=== PATIENT | female | born 1990 | race African-American/Black ===

== ENCOUNTER 2018-11-24 16:38 | Inpatient (IN) | payer OTHER ==
[2018-11-24] MEDS ORDERED: ELECTROLYTE-148 SOLN 1,000 ML IV ONE (16:45)
[2018-11-24 17:27] VITALS: BMI 33.5
[2018-11-24] MEDS ORDERED: ELECTROLYTE-148 SOLN 1,000 ML IV SCH (17:45)
[2018-11-24 18:09] LABS: BASO % 0.3 % (0-2.0); EOS % 1.5 % (0-4.5); HEMATOCRIT 32.6 % (32.4-45.2); HEMOGLOBIN 11.2 GM/dL (10.7-15.3); LYMPH % 21.4 % (8-40); MCH 30.6 pg (25.7-33.7); MCHC 34.3 g/dl (32.0-36.0); MEAN CELL VOLUME 89.2 fl (80-96); MEAN PLT VOLUME 9.3 fl (7.5-11.1); MONO % 10.2 % (3.8-10.2); NEUT % 66.6 % (42.8-82.8); PLATELET COUNT 194 K/MM3 (134-434); RBC 3.66 M/mm3 (3.60-5.2); RDW 13.5 % (11.6-15.6); WHITE BLOOD COUNT 9.6 K/mm3 (4.0-10.0)
[2018-11-24 18:30] LABS: INR 0.94 (0.83-1.09); PROTHROMBIN TIME (PATIENT) 11.1 SEC (9.7-13.0)
[2018-11-24 18:33] LABS: ACTIVATED PTT 28.5 SECONDS (25.2-36.5)
[2018-11-24 18:37] LABS: ALBUMIN 2.8 g/dl (3.4-5.0); ALK PHOS 135 U/L (45-117); ANION GAP 9 MMOL/L (8-16); BILIRUBIN,TOTAL 0.2 mg/dL (0.2-1); BLOOD UREA NITROGEN 12 mg/dL (7-18); CALCIUM 8.5 mg/dL (8.5-10.1); CHLORIDE 107 mmol/L (98-107); CO2 24 mmol/L (21-32); CREATININE 0.5 mg/dL (0.55-1.3); GLUCOSE,RANDOM 73 mg/dL (74-106); POTASSIUM 3.8 mmol/L (3.5-5.1); SGOT/AST 14 U/L (15-37); SGPT/ALT 20 U/L (13-61); SODIUM 139 mmol/L (136-145); TOT PROT 6.4 g/dl (6.4-8.2)
--- NOTE | 2018-11-24 20:54 | HP ---
Past Medical History - Primary Care Physician PCP:: Bola Vnan - Admission Chief Complaint: 36 weeks, previous c/s , placenta previa, vaginal bleeding History of Present Illness: 27 yo f 36 weeks , with 2 previous c/s, known placenta previa , c/o vaginal bleeding one episode at home , had her panties soaked, no pain, ,fhr cat i, no contraction vagina exan , small blood clot removed from vagina , no active vaginal bleeding seen , cx closed , long History Source: Patient Limitations to Obtaining History: No Limitations - Past Medical History Gastrointestinal: Yes: Constipation Renal/: Yes: UTI (07/27/15 urine c/s pos for gbs) ...: 3 ...Para: 2 ...Term: 2 ...EDC by Chelsy: 12/23/18 Additional OB History: 2 previous c/s - Past Surgical History Past Surgical History: Yes: (02/2008) Hx Myomectomy: No Hx Transabdominal Cerclage: No - Smoking History Smoking history: Never smoked Have you smoked in the past 12 months: No Aproximately how many cigarettes per day: 2 - Alcohol/Substance Use Hx Alcohol Use: No History of Substance Use: reports: None - Social History Usual Living Arrangement: Yes: With Spouse History of Recent Travel: No Home Medications - Allergies Allergies/Adverse Reactions: Allergies Allergy/AdvReac Type Severity Reaction Status Date / Time No Known Drug Allergies Allergy Verified 11/24/18 17:40 - Home Medications Home Medications: Ambulatory Orders No122/Iron/Folic Acid [ Multi Tablet] 1 each PO DAILY MDD 1 11/12 Vitamins (Sjr) - 1 tab PO DAILY 01/31/16 Acetaminophen [Tylenol .Regular Strength -] 650 mg PO Q4H PRN #0 tablet Ibuprofen [Motrin -] 600 mg PO Q4H PRN #60 tablet 02/01/16 Tablet 1 tab PO DAILY 11/24/18 Review of Systems - Review of Systems Constitutional: reports: No Symptoms Eyes: reports: No Symptoms HENT: reports: No Symptoms Neck: reports: No Symptoms Cardiovascular: reports: No Symptoms Respiratory: reports: No Symptoms Gastrointestinal: reports: No Symptoms Genitourinary: reports: No Symptoms Breasts: reports: No Symptoms Reported Musculoskeletal: reports: No Symptoms Integumentary: reports: No Symptoms Neurological: reports: No Symptoms Endocrine: reports: No Symptoms Hematology/Lymphatic: reports: No Symptoms Psychiatric: reports: No Symptoms Physical Exam - Maternity Vital Signs: Vital Signs Temperature 98.2 F 11/24/18 18:39 Pulse Rate 155 H 11/24/18 18:39 Respiratory Rate 18 11/24/18 18:39 Blood Pressure 112/66 11/24/18 18:39 O2 Sat by Pulse Oximetry (%) Constitutional: Yes: Well Nourished, No Distress, Calm Eyes: Yes: WNL, Conjunctiva Clear, EOM Intact HENT: Yes: WNL, Atraumatic, Normocephalic Neck: Yes: WNL, Supple, Trachea Midline Cardiovascular: Yes: WNL, Regular Rate and Rhythm Breast(s): Yes: WNL - Abdominal Exam/OB Fundal Height: 36 Number of Fetuses: Single Presentation: Vertex Contractions: No Intensity: Unaware Monitor Mode: External Heart Rate Location: [facility] Category: I Accelerations: Uniform Decelerations: None - Vaginal Exam/OB Vaginal Bleediing: Yes, Old Blood Speculum Exam: No Dilatation (cm): closed Effacement (%): 0 Amniotic Membrane Status: Intact Presentation: Vertex/Position Station: -4 - Physical Exam Musculoskeletal: Yes: WNL Extremities: Yes: WNL Edema: LLE: Trace, RLE: Trace Deep Tendon Reflex Grade: Normal +2 ...Motor Strength: WNL Psychiatric: Yes: WNL - Labs Lab Results: CBC, BMP 11/24/18 17:30 11/24/18 17:30 Hemorrhage Risk Assessment - Risk Factors High Risk Factors: Yes: Placenta previa, low lying Risk Score: 2 Risk Level: High Risk Problem List - Problems (1) with 36 completed weeks gestation Code(s): Z3A.36 - 36 WEEKS GESTATION OF (2) Placenta previa antepartum in third trimester Code(s): O44.03 - COMPLETE PLACENTA PREVIA NOS OR WITHOUT HEMOR, THIRD TRI (3) Vaginal bleeding Code(s): N93.9 - ABNORMAL UTERINE AND VAGINAL BLEEDING, UNSPECIFIED Assessment/Plan admit for observation, monitor fh vaginal bleeeding has stoped, if continue to bleed will do c/s, otherwise observation celestone 2 doses c/s 24 hr ater second dose completion FHM
[2018-11-24] MEDS ORDERED: BETAMET ACET/BETAMET NA PH 30 MG/5 ML VIAL IM ONE (21:12)
[2018-11-24] MEDS ORDERED: BETAMET ACET/BETAMET NA PH 30 MG/5 ML VIAL ONE (21:21)
[2018-11-24] MEDS ORDERED: DEXTROSE 5%-LACTATED RINGERS 1,000 ML IV SCH (21:30)
--- NOTE | 2018-11-25 07:01 | PN ---
Progress Note (short form) - Note Progress Note: 36 weeks complete placenta previa vaginal bleeding no vaginal bleeding or spotting since last night, no pain Last Vital Signs Temp Pulse Resp BP Pulse Ox 98.1 F 83 18 101/61 11/25/18 06:00 11/25/18 06:00 11/25/18 06:00 11/25/18 06:00 abdomen soft, uterus non tender, 36 weeks size fhr cat 1, no contraction impression stable no vaginal bleeding plan will give second dose of beclomethasone tonight,for c/s after Problem List - Problems (1) with 36 completed weeks gestation Code(s): Z3A.36 - 36 WEEKS GESTATION OF (2) Placenta previa antepartum in third trimester Code(s): O44.03 - COMPLETE PLACENTA PREVIA NOS OR WITHOUT HEMOR, THIRD TRI (3) Vaginal bleeding Code(s): N93.9 - ABNORMAL UTERINE AND VAGINAL BLEEDING, UNSPECIFIED
[2018-11-25 07:37] LABS: BASO % 0.6 % (0-2.0); HEMATOCRIT 31.7 % (32.4-45.2); HEMOGLOBIN 10.8 GM/dL (10.7-15.3); MCH 30.5 pg (25.7-33.7); MCHC 34.1 g/dl (32.0-36.0); MEAN CELL VOLUME 89.4 fl (80-96); MEAN PLT VOLUME 9.3 fl (7.5-11.1); MONO % 2.1 % (3.8-10.2); NEUT % 86.3 % (42.8-82.8); PLATELET COUNT 185 K/MM3 (134-434); RBC 3.54 M/mm3 (3.60-5.2); RDW 13.8 % (11.6-15.6)
[2018-11-25 09:48] LABS: RPR NONREACTIVE (NONREACTIVE)
[2018-11-25] MEDS: ELECTROLYTE-148 SOLN 1,000 ML IV SCH ×2 (10:30→13:47)
[2018-11-25] MEDS ORDERED: CITRIC ACID/SODIUM CITRATE 30 ML UNIT-DOSE CUP PO ONE (11:00)
[2018-11-25] MEDS ORDERED: OXYTOCIN 20 UNITS in 0.9% NS 40 UNIT/2,000 ML INFUS.BAG IV ONE (11:09)
[2018-11-25] MEDS ORDERED: morphine SULFATE/Preservative Free 0.5 MG/ML (1cc Syringe) ONE (13:22)
[2018-11-25] MEDS ORDERED: ePHEDrine SULFATE 50 MG/1 ML AMPULE ONE (13:23)
[2018-11-25] MEDS ORDERED: oxyCODONE HCL 5 MG TABLET PO PRN (14:54)
[2018-11-25] MEDS ORDERED: IBUPROFEN 800 MG/8 ML IJ IVPB PRN (14:54)
[2018-11-25] MEDS ORDERED: METHYLERGONOVINE MALEATE 0.2 MG/1 ML AMP IM PRN (14:54)
[2018-11-25] MEDS ORDERED: OXYTOCIN 20 UNITS in 0.9% NS 20 UNIT/1,000 ML INFUS.BAG IV SCH (15:00)
--- NOTE | 2018-11-25 15:02 | OP ---
Operative Note - Note: Operative Date: 11/25/18 Pre-Operative Diagnosis: Previous / Complete Placeta previa Operation: Repeat Low Transverse Findings: Baby girl in cephalic presentation / Complete Placenta Previa Post-Operative Diagnosis: Same as Pre-op Surgeon: Mali Cross Commodities Requirements Analyst: Pete Kevin Anesthesia: Spinal Specimens Removed: Placenta Estimated Blood Loss (mls): 700 Operative Report Dictated: Yes
[2018-11-25 16:18] LABS: ARTERIAL BLD GAS O2 SATURATION 35.4 % (95-98); ARTERIAL BLOOD GAS BASE EXCESS -2.3 meq/l (-2-2); ARTERIAL BLOOD GAS PCO2 54.2 mmHg (35-45); ARTERIAL BLOOD GAS pH 7.28 (7.35-7.45)
[2018-11-25 16:21] LABS: VENOUS PC02 40.3 mmHg (41-51); VENOUS PH 7.38 (7.31-7.41); VENOUS PO2 33.8 mmHg (30-40)
[2018-11-25 16:37] LABS: ARTERIAL BLOOD GAS PO2 20.4 mmHg (80-105)
[2018-11-25 20:11] LABS: BASO % 0.2 % (0-2.0); HEMATOCRIT 25.1 % (32.4-45.2); HEMOGLOBIN 8.3 GM/dL (10.7-15.3); LYMPH % 14.1 % (8-40); MCH 29.8 pg (25.7-33.7); MCHC 32.9 g/dl (32.0-36.0); MEAN CELL VOLUME 90.7 fl (80-96); MEAN PLT VOLUME 9.5 fl (7.5-11.1); MONO % 10.9 % (3.8-10.2); NEUT % 74.8 % (42.8-82.8); RBC 2.77 M/mm3 (3.60-5.2); RDW 13.9 % (11.6-15.6); WHITE BLOOD COUNT 20.2 K/mm3 (4.0-10.0)
--- NOTE | 2018-11-25 20:22 | PN ---
Progress Note (short form) - Note Progress Note: Called by nurse to evaluate Patient with hemorrhage after . Patient had a repeat at 36 weeks due to complete Placenta Previa. I came to evaluated patient, she's lying comfortably in bed; not in distress. Pitocin in ongoing. PE : Uterus firm, dressing dry and intact. Pelvis : + significant amount of clots at the cervical os. Clots removed with hand. A/P : Hemorrhage after Stable Continue observation
[2018-11-25] MEDS ORDERED: CEFAZOLIN 2 GM/D5W 2 GM/50 ML ML IVPB ONE (20:45)
[2018-11-25 21:33] LABS: PLATELET COUNT 214 K/MM3 (134-434)
[2018-11-25 21:34] LABS: ANISOCYTOSIS 2+; MACROCYTOSIS 1+; PLATELET ESTIMATE ADEQUATE
[2018-11-26 07:27] LABS: BASO % 0.4 % (0-2.0); EOS % 0.3 % (0-4.5); HEMATOCRIT 18.3 % (32.4-45.2); LYMPH % 14.9 % (8-40); MCHC 33.3 g/dl (32.0-36.0); MEAN CELL VOLUME 90.2 fl (80-96); MEAN PLT VOLUME 9.2 fl (7.5-11.1); MONO % 11.7 % (3.8-10.2); NEUT % 72.7 % (42.8-82.8); PLATELET COUNT 153 K/MM3 (134-434); RBC 2.03 M/mm3 (3.60-5.2); RDW 13.8 % (11.6-15.6); WHITE BLOOD COUNT 13.3 K/mm3 (4.0-10.0)
[2018-11-26 08:24] LABS: HEMOGLOBIN 6.1 GM/dL (10.7-15.3)
[2018-11-26] MEDS ORDERED: diphenhydrAMINE HCL 25 MG CAPSULE (FP) PO PRN (10:48)
[2018-11-26] MEDS: ACETAMINOPHEN 325 MG TABLET (FP) PO PRN ×3 (11:05→22:03)
--- NOTE | 2018-11-26 14:51 | PN ---
Post Progress Note - Subjective Subjective: 27 yo Para 3 status post repeat at 36 weeks for Placenta previa, seen and evaluated. She's receiving blood transfusion due to severe anemia. She's lying in bed and denies any dizziness. Post Day: 1 Type of Delivery: Repeat C/S Vital Signs: Vital Signs Temperature 98.6 F 11/26/18 11:10 Pulse Rate 89 11/26/18 11:10 Respiratory Rate 20 11/26/18 12:00 Blood Pressure 89/50 L 11/26/18 11:10 O2 Sat by Pulse Oximetry (%) 100 11/25/18 16:30 Uterus: Yes: Fundus Firm Incision: Yes: Dressing dry and intact Abdomen/GI: Yes: Abdomen soft, Tolerating PO Lochia: Yes: Rubra Lochia, amount: Heavy Extremities: Yes: Calves non-tender Perineum: Yes: Intact - Labs Labs: CBC WBC 13.3 K/mm3 (4.0-10.0) H 11/26/18 06:00 RBC 2.03 M/mm3 (3.60-5.2) L 11/26/18 06:00 Hgb 6.1 GM/dL (10.7-15.3) L* 11/26/18 06:00 Hct 18.3 % (32.4-45.2) L D 11/26/18 06:00 MCV 90.2 fl (80-96) 11/26/18 06:00 MCH 30.0 pg (25.7-33.7) 11/26/18 06:00 MCHC 33.3 g/dl (32.0-36.0) 11/26/18 06:00 RDW 13.8 % (11.6-15.6) 11/26/18 06:00 Plt Count 153 K/MM3 (134-434) D 11/26/18 06:00 MPV 9.2 fl (7.5-11.1) 11/26/18 06:00 Absolute Neuts (auto) 9.7 K/mm3 (1.5-8.0) H 11/26/18 06:00 Neutrophils % 72.7 % (42.8-82.8) 11/26/18 06:00 Neutrophils % (Manual) 68.0 % (42.8-82.8) 11/25/18 19:00 Band Neutrophils % 4.0 % 11/25/18 19:00 Lymphocytes % 14.9 % (8-40) 11/26/18 06:00 Lymphocytes % (Manual) 16.0 % (8-40) 11/25/18 19:00 Monocytes % 11.7 % (3.8-10.2) H 11/26/18 06:00 Monocytes % (Manual) 12 % (3.8-10.2) H 11/25/18 19:00 Eosinophils % 0.3 % (0-4.5) D 11/26/18 06:00 Basophils % 0.4 % (0-2.0) 11/26/18 06:00 Nucleated RBC % 0 % (0-0) 11/26/18 06:00 Hypochromia 1+ 11/25/18 19:00 Platelet Estimate Adequate 11/25/18 19:00 Anisocytosis 2+ 11/25/18 19:00 Microcytosis 1+ 11/25/18 19:00 Macrocytosis 1+ 11/25/18 19:00 Problem List - Problems (1) Status post repeat low transverse section Code(s): Z98.891 - HISTORY OF UTERINE SCAR FROM PREVIOUS SURGERY Assessment/Plan Status post repeat Severe anemia Continue blood transfusion Repeat CBC after transfusion
[2018-11-26] MEDS ORDERED: BISACODYL 10 MG SUPP.RECT RC PRN (14:54)
[2018-11-26] MEDS: SIMETHICONE 80 MG TAB.CHEW (FP) PO PRN (16:47)
[2018-11-26] MEDS: IBUPROFEN 600 MG TABLET (FP) PO PRN ×2 (16:48→22:02)
--- NOTE | 2018-11-26 19:13 | OP ---
DATE OF OPERATION: 11/25/2018 PREOPERATIVE DIAGNOSIS: 36 weeks' gestation with complete placenta previa. POSTOPERATIVE DIAGNOSIS: 36 weeks' gestation with complete placenta previa. PROCEDURE: Repeat low transverse section. SURGEON: Mali Cross M.D. CO FOUNDER AND CHAIRMAN: Kushal Pedro ANESTHESIA: Spinal. COMPLICATIONS: None. ESTIMATED BLOOD LOSS: 700 mL. PROCEDURE: The patient was taken to the operating room where spinal anesthesia was administered. The patient was then prepped and draped in proper sterile fashion. A Pfannenstiel skin incision was made and carried down to the underlying layer of fascia. The fascia was incised in the midline and extended laterally. The superior aspect of the fascial incision was then grasped with Jv clamp, elevated, and the rectus muscle dissected off bluntly. Attention was then turned to the inferior aspect of the fascial incision, which in a similar fashion was then grasped with Jv clamp, elevated, and the rectus muscle dissected off bluntly. The rectus muscle was then in the midline. The peritoneum identified and entered sharply with the Metzenbaum scissors. The peritoneal incision was extended superiorly and inferiorly with good visualization of the bladder. Then the vesicouterine peritoneum was then grasped with a pickup and entered sharply with the Metzenbaum scissors. This incision was extended laterally, and a bladder flap created digitally. The lower uterine segment was incised using a 10 blade. This incision was extended laterally and the head delivered. Nose and mouth were suctioned, and the cord clamped and cut. The was handed to the waiting shank paperer. The placenta was found to be posteriorly, covering the cervical os. It was removed manually. Then the uterus was exteriorized and cleared of all clots and debris. The uterine incision was repaired using 0 Biosyn in a running locked fashion. A second layer of the same suture was used as a means to provide excellent hemostasis. The pelvis was completely irrigated, the uterus was returned to the abdomen. The peritoneum was closed using 2-0 Biosyn. The fascia was reapproximated using 0 Vicryl. The skin was closed with tia. Patient tolerated procedure well. Patient was then taken to PACU in stable condition. Pathology: Placenta. MALI CROSS M.D. [id number] MTDD
[2018-11-26 19:23] LABS: BASO % 0.4 % (0-2.0); EOS % 1.2 % (0-4.5); HEMATOCRIT 24.1 % (32.4-45.2); LYMPH % 17.3 % (8-40); MCHC 33.1 g/dl (32.0-36.0); MEAN CELL VOLUME 87.6 fl (80-96); MEAN PLT VOLUME 9.4 fl (7.5-11.1); MONO % 12.6 % (3.8-10.2); NEUT % 68.5 % (42.8-82.8); PLATELET COUNT 160 K/MM3 (134-434); RBC 2.75 M/mm3 (3.60-5.2); RDW 15.7 % (11.6-15.6); WHITE BLOOD COUNT 15.7 K/mm3 (4.0-10.0)
[2018-11-27 08:09] LABS: BASO % 0.3 % (0-2.0); EOS % 1.9 % (0-4.5); HEMATOCRIT 21.7 % (32.4-45.2); HEMOGLOBIN 7.5 GM/dL (10.7-15.3); LYMPH % 20.2 % (8-40); MCH 29.2 pg (25.7-33.7); MCHC 34.4 g/dl (32.0-36.0); MEAN CELL VOLUME 85.1 fl (80-96); MEAN PLT VOLUME 8.9 fl (7.5-11.1); MONO % 11.2 % (3.8-10.2); NEUT % 66.4 % (42.8-82.8); PLATELET COUNT 158 K/MM3 (134-434); RBC 2.55 M/mm3 (3.60-5.2); RDW 15.7 % (11.6-15.6); WHITE BLOOD COUNT 13.6 K/mm3 (4.0-10.0)
--- NOTE | 2018-11-27 08:33 | PN ---
Progress Note (short form) - Note Progress Note: pod 2 . s/p repeat c/s, total previa, post op vaginal bleed , recived 2 units PRBC has no excess vaginal bleeding, no dizziness CBC, BMP 11/24/18 17:30 Last Vital Signs Temp Pulse Resp BP Pulse Ox 98.1 F 84 18 106/68 100 11/27/18 06:00 11/27/18 06:00 11/27/18 06:00 11/27/18 06:00 11/25/18 16:30 abdomen soft, no distension, no cva , uterus firm no distension, BS are present incision dry, clean no calf tenderness plan ambulate cbc in am pain management Problem List - Problems (1) with 36 completed weeks gestation Code(s): Z3A.36 - 36 WEEKS GESTATION OF (2) Placenta previa antepartum in third trimester Code(s): O44.03 - COMPLETE PLACENTA PREVIA NOS OR WITHOUT HEMOR, THIRD TRI (3) Vaginal bleeding Code(s): N93.9 - ABNORMAL UTERINE AND VAGINAL BLEEDING, UNSPECIFIED
[2018-11-27] MEDS: PRENATAL VITAMINS W/ FOLIC ACID TABLET (FP) PO SCH (10:53)
[2018-11-27] MEDS: ACETAMINOPHEN 325 MG TABLET (FP) PO PRN ×2 (14:30→22:00)
[2018-11-27] MEDS: SIMETHICONE 80 MG TAB.CHEW (FP) PO PRN ×2 (14:30→22:00)
[2018-11-27] MEDS: IBUPROFEN 600 MG TABLET (FP) PO PRN ×2 (14:31→22:00)
[2018-11-27] MEDS: FERROUS SO4 325 MG TABLET (FP) PO SCH (17:17)
[2018-11-28] MEDS: FERROUS SO4 325 MG TABLET (FP) PO SCH ×2 (07:34→17:55)
[2018-11-28 08:39] LABS: BASO % 0.8 % (0-2.0); EOS % 4.6 % (0-4.5); HEMOGLOBIN 7.7 GM/dL (10.7-15.3); MCH 28.8 pg (25.7-33.7); MCHC 33.4 g/dl (32.0-36.0); MEAN CELL VOLUME 86.5 fl (80-96); NEUT % 58.6 % (42.8-82.8); PLATELET COUNT 186 K/MM3 (134-434); RBC 2.66 M/mm3 (3.60-5.2); WHITE BLOOD COUNT 11.3 K/mm3 (4.0-10.0)
[2018-11-28] MEDS: PRENATAL VITAMINS W/ FOLIC ACID TABLET (FP) PO SCH (09:52)
[2018-11-28] MEDS: IBUPROFEN 600 MG TABLET (FP) PO PRN ×2 (10:05→20:08)
[2018-11-28] MEDS: ACETAMINOPHEN 325 MG TABLET (FP) PO PRN ×2 (10:06→20:07)
[2018-11-28 12:28] LABS: RUBELLA IgG ANTIBODY 3.42
[2018-11-28 16:29] LABS: HBsAG SCREEN Negative
--- NOTE | 2018-11-28 20:16 | PN ---
Post Progress Note - Subjective Subjective: 27 yo Para 3 status post repeat , seen and evaluated. She's out of bed to chair. Doing well. Post Day: 3 Type of Delivery: Repeat C/S Vital Signs: Vital Signs Temperature 98 F 11/28/18 08:55 Pulse Rate 91 H 11/28/18 08:55 Respiratory Rate 18 11/28/18 08:55 Blood Pressure 119/78 11/28/18 08:55 O2 Sat by Pulse Oximetry (%) 100 11/25/18 16:30 Breast Exam: Yes: Soft Uterus: Yes: Fundus Firm Incision: Yes: Miki intact Abdomen/GI: Yes: Abdomen soft, Tolerating PO Lochia: Yes: Rubra Lochia, amount: Small Extremities: Yes: Calves non-tender Activity: Ambulating - Labs Labs: CBC WBC 11.3 K/mm3 (4.0-10.0) H 11/28/18 07:30 RBC 2.66 M/mm3 (3.60-5.2) L 11/28/18 07:30 Hgb 7.7 GM/dL (10.7-15.3) L 11/28/18 07:30 Hct 23.0 % (32.4-45.2) L 11/28/18 07:30 MCV 86.5 fl (80-96) 11/28/18 07:30 MCH 28.8 pg (25.7-33.7) 11/28/18 07:30 MCHC 33.4 g/dl (32.0-36.0) 11/28/18 07:30 RDW 16.0 % (11.6-15.6) H 11/28/18 07:30 Plt Count 186 K/MM3 (134-434) 11/28/18 07:30 MPV 9.0 fl (7.5-11.1) 11/28/18 07:30 Absolute Neuts (auto) 6.6 K/mm3 (1.5-8.0) 11/28/18 07:30 Neutrophils % 58.6 % (42.8-82.8) 11/28/18 07:30 Neutrophils % (Manual) 68.0 % (42.8-82.8) 11/25/18 19:00 Band Neutrophils % 4.0 % 11/25/18 19:00 Lymphocytes % 27.0 % (8-40) D 11/28/18 07:30 Lymphocytes % (Manual) 16.0 % (8-40) 11/25/18 19:00 Monocytes % 9.0 % (3.8-10.2) 11/28/18 07:30 Monocytes % (Manual) 12 % (3.8-10.2) H 11/25/18 19:00 Eosinophils % 4.6 % (0-4.5) H D 11/28/18 07:30 Basophils % 0.8 % (0-2.0) 11/28/18 07:30 Nucleated RBC % 0 % (0-0) 11/28/18 07:30 Hypochromia 1+ 11/25/18 19:00 Platelet Estimate Adequate 11/25/18 19:00 Anisocytosis 2+ 11/25/18 19:00 Microcytosis 1+ 11/25/18 19:00 Macrocytosis 1+ 11/25/18 19:00 Problem List - Problems (1) Status post repeat low transverse section Code(s): Z98.891 - HISTORY OF UTERINE SCAR FROM PREVIOUS SURGERY Assessment/Plan Status post repeat Stable Continue routine care
--- NOTE | 2018-11-29 07:06 | DS ---
Physical Exam-CARTON COUNTER FEEDER Vital Signs: Vital Signs Temperature 98.0 F 11/28/18 23:48 Pulse Rate 88 11/28/18 23:48 Respiratory Rate 20 11/28/18 23:48 Blood Pressure 117/66 11/28/18 23:48 O2 Sat by Pulse Oximetry (%) 100 11/25/18 16:30 Constitutional: Yes: Well Nourished, No Distress, Calm Eyes: Yes: WNL, Conjunctiva Clear, EOM Intact HENT: Yes: WNL, Atraumatic, Normocephalic Neck: Yes: WNL, Supple, Trachea Midline Cardiovascular: Yes: WNL, Regular Rate and Rhythm Respiratory: Yes: WNL, Regular, CTA Bilaterally Gastrointestinal: Yes: WNL ...Rectal Exam: Yes: WNL Renal/: Yes: WNL ....Post : Yes: Uterus firm, Uterus non-tender, Slight lochia rubra Breast(s): Yes: WNL Musculoskeletal: Yes: WNL Extremities: Yes: WNL Edema: No Integumentary: Yes: WNL Wound/Incision: Yes: Clean/Dry, Well Approximated, [place] Intact Neurological: Yes: WNL, Alert, Oriented ...Motor Strength: WNL Psychiatric: Yes: WNL, Alert, Oriented Labs: CBC, BMP 11/28/18 07:30 11/24/18 17:30 Delivery - Delivery Section: Repeat, Low Flap Transverse Type of Anesthesia: Spinal Episiotomy/Laceration: None EBL (cc): 700 Delivery, Single - Stages of Labor Date of Delivery: 11/25/18 Time of Delivery: 14:27 Time Placenta Delivered: 14:28 Placenta: Yes: Expressed - Condition of Infant Filler Shredder Machine/Optometrist President/Practice Owner Present: Yes Name: Mkiey Ferguson Infant Gender: Female Weight: 6 lb 1 oz Position: Left, OA Total Hours ROM (Hrs/Mins): 0/2 - 1 Minute Total Score: 9 5 Minutes Total Score: 9 - [place] Feeding Plan Initial Plan: Elected not to breastfeed exclusively throughout hospitalization Discharge Summary Reason For Visit: VAGINAL BLEEDING Current Active Problems Placenta previa antepartum in third trimester (Acute) with 36 completed weeks gestation (Acute) Status post repeat low transverse section (Acute) Vaginal bleeding (Acute) Procedures: Principal: repeat LST c/s Condition: Good - Instructions Diet, Activity, Other Instructions: regular diet, follow up [facility] care 1 week, if fever, vaginal bleeding, fever, dizziness call md Referrals: Reanna Zuleta MD [Staff Physician] - Disposition: HOME - Home Medications Comprehensive Discharge Medication List: Ambulatory Orders Tablet 1 tab PO DAILY 11/24/18 Ibuprofen [Motrin -] 600 mg PO QID #28 tablet 11/28/18 Ferrous Sulfate 325 mg PO BID #90 tablet 11/29/18
[2018-11-29] MEDS: SIMETHICONE 80 MG TAB.CHEW (FP) PO PRN (07:37)
[2018-11-29] MEDS: IBUPROFEN 600 MG TABLET (FP) PO PRN (07:37)
[2018-11-29] MEDS: FERROUS SO4 325 MG TABLET (FP) PO SCH (07:37)
[2018-11-29] MEDS: ACETAMINOPHEN 325 MG TABLET (FP) PO PRN (07:38)
[2018-11-29] MEDS: PRENATAL VITAMINS W/ FOLIC ACID TABLET (FP) PO SCH (09:45)
[2018-11-29 10:12] VITALS: BP 117/74; PULSE 79; TEMP 98.3
--- NOTE | 2018-11-29 14:49 | PATH ---
Surgical Pathology Report Patient Name: JUS CABAN [facility]. Rec. #: [id number] /Age/Gender: 1990 (Age: 27) / F Account: [id number] Location: [facility] OBS/HEAD ATHLETIC TRAINER/STRENGTH COACH Taken: 11/25/2018 Received: 11/26/2018 Reported: 11/29/2018 Physicians: Jordan Alford M.D. Specimen(s) Received PLACENTA Clinical History , 36 weeks, complete placenta previa Final Diagnosis PLACENTA: THIRD TRIMESTER PLACENTA WITH FOCAL PERIVILLOUS FIBRIN DEPOSITION. TRIVASCULAR CORD. MEMBRANES WITH NO DIAGNOSTIC ABNORMALITIES. Electronically Signed Anne Vargas M.D. Gross Description The specimen is received fresh labeled placenta and is a 389 gram, 20.0 x 15.5 x 1.5 cm. placenta with attached membranes and umbilical cord. The attached membranes are puente, translucent with focal opacities and insert marginally. The umbilical cord measures 23 cm. in length and averages 1 cm. in diameter. The cord inserts centrally. No true knots or strictures are identified. Cut surface of the umbilical cord reveals 3 vessels. The surface is german-blue with minimal fibrin deposition and appropriate caliber vessels. The maternal surface is red-brown with focal defects. Sectioning reveals red-brown, spongy parenchyma. No lesions are identified. Assistant Strength Coach sections are submitted in three cassettes as follows: 1- membrane rolls and umbilical cord; 2-3- full thickness sections of placenta. /11/26/2018 saudi11/26/2018
== END 2018-11-29 13:00 | disposition home or self-care (01) | DRG 540 ==
LOC: JLDR 16:38 → J3W 11-25 16:50
PROVIDERS: ADMIT Obstetrics & Gynecology; ATTEND Obstetrics & Gynecology
PROC: 10D00Z1 Extraction of Products of Conception, Low, Open Approach (ICD-10-PCS; principal; 2018-11-25)
DX: O44.03 Complete placenta previa NOS or without hemorrhage, third trimester (principal); O34.211 Maternal care for low transverse scar from previous cesarean delivery; O99.02 Anemia complicating childbirth; D64.9 Anemia, unspecified; Z3A.36 36 weeks gestation of pregnancy; Z37.0 Single live birth
CPT/HCPCS: 36415; 36430; 36511; 36600; 80053; 82803; 85025; 85610; 85730; 86593; 86762; 86922; 87340; 87389; 88307-TC; 96372; P9038; P9051; P9058

== ENCOUNTER 2021-02-18 19:15 | Emergency (ER) | payer OTHER ==
[2021-02-18 19:27] VITALS: BP 123/77; PULSE 94; TEMP 97.3; BMI 28.8
[2021-02-18] MEDS ORDERED: ACETAMINOPHEN 325 MG TABLET (FP) PO ONE (20:24)
[2021-02-18] MEDS ORDERED: ACETAMINOPHEN 325 MG TABLET (FP) ONE (21:02)
[2021-02-18 21:53] LABS: BASO % 0.5 % (0-2.0); EOS % 1.9 % (0-4.5); HEMATOCRIT 37.8 % (32.4-45.2); HEMOGLOBIN 12.9 GM/dL (10.7-15.3); MCH 30.2 pg (25.7-33.7); MCHC 34.3 g/dl (32.0-36.0); MONO % 13.2 % (3.8-10.2); NEUT % 46.4 % (42.8-82.8); PLATELET COUNT 261 10^3/uL (134-434); RBC 4.29 M/mm3 (3.60-5.2); RDW 13.3 % (11.6-15.6); WHITE BLOOD COUNT 6.7 K/mm3 (4.0-10.0)
[2021-02-18 22:17] LABS: CALCIUM 8.3 mg/dL (8.5-10.1)
[2021-02-18 22:18] LABS: BLOOD UREA NITROGEN 9.4 mg/dL (7-18)
[2021-02-18 22:21] LABS: CREATININE 0.7 mg/dL (0.55-1.3)
[2021-02-18 22:23] LABS: BILIRUBIN,TOTAL 0.4 mg/dL (0.2-1)
[2021-02-18] MEDS ORDERED: AMOX TR/POT CLAV 875MG/125MG TABLETS (FP) PO ONE (22:33)
[2021-02-18] MEDS ORDERED: AMOX TR/POT CLAV 875MG/125MG TABLETS (FP) ONE (22:52)
== END 2021-02-18 23:00 | disposition home or self-care (01) ==
LOC: JER 19:15
DX: A09 Infectious gastroenteritis and colitis, unspecified (principal)
CPT/HCPCS: 36415; 80053; 85025; 99283-25; C9803; U0003; U0005

== ENCOUNTER 2022-09-05 17:29 | Emergency (ER) | payer OTHER ==
[2022-09-05 17:38] VITALS: BP 108/67; PULSE 89; RESP 18; TEMP 98.1; BMI 25.2
[2022-09-05 19:31] LABS: BASO % 0.4 % (0-2.0); EOS % 1.4 % (0-4.5); HEMATOCRIT 36.2 % (32.4-45.2); LYMPH % 30.1 % (8-40); MCH 29.9 pg (25.7-33.7); MCHC 33.2 g/dl (32.0-36.0); MEAN PLT VOLUME 9.1 fl (7.5-11.1); MONO % 8.6 % (3.8-10.2); NEUT % 59.5 % (42.8-82.8); PLATELET COUNT 220 10^3/uL (134-434); RBC 4.02 M/mm3 (3.60-5.2); RDW 13.2 % (11.6-15.6); WHITE BLOOD COUNT 9.4 K/mm3 (4.0-10.0)
[2022-09-05 19:32] LABS: URINE APPEARANCE CLEAR; URINE BILIRUBIN NEGATIVE (NEGATIVE); URINE COLOR YELLOW; URINE GLUCOSE (UA) NEGATIVE (NEGATIVE); URINE KETONE NEGATIVE (NEGATIVE); URINE LEUK ESTERASE NEGATIVE (NEGATIVE); URINE NITRITE NEGATIVE (NEGATIVE); URINE PROTEIN NEGATIVE (NEGATIVE)
[2022-09-05 19:35] LABS: HCG,QUALITATIVE URINE Negative
[2022-09-05] MEDS ORDERED: KETOROLAC TROMETHAMINE 30 MG/1 ML VIAL IM ONE (19:36)
[2022-09-05] MEDS ORDERED: CYCLOBENZAPRINE HCL 10 MG TABLET (FP) PO ONE (19:36)
[2022-09-05] MEDS ORDERED: ACETAMINOPHEN 500 MG TABLET (FP) PO ONE (19:36)
[2022-09-05 19:46] LABS: BLOOD UREA NITROGEN 18.5 mg/dL (7-18)
[2022-09-05] MEDS ORDERED: ACETAMINOPHEN 500 MG TABLET (FP) ONE (19:47)
[2022-09-05] MEDS ORDERED: CYCLOBENZAPRINE HCL 10 MG TABLET (FP) ONE (19:47)
[2022-09-05] MEDS ORDERED: KETOROLAC TROMETHAMINE 30 MG/1 ML VIAL ONE (19:47)
[2022-09-05 19:50] LABS: CREATININE 0.7 mg/dL (0.55-1.3)
== END 2022-09-05 19:58 | disposition home or self-care (01) ==
LOC: JERFT 17:29
PROC: 3E023GC Introduction of Other Therapeutic Substance into Muscle, Percutaneous Approach (ICD-10-PCS; principal; 2022-09-05)
DX: M54.50 Low back pain, unspecified (principal)
CPT/HCPCS: 36415; 71046-TC-FY; 80048; 81003; 84703; 85025; 87086; 99284-25

== ENCOUNTER 2023-03-06 22:18 | Emergency (ER) | payer OTHER ==
[2023-03-06 22:23] VITALS: BP 118/76; PULSE 77; RESP 18; TEMP 98.8; BMI 26.6
[2023-03-06] MEDS ORDERED: KETOROLAC TROMETHAMINE 60 MG/2 ML VIAL IM ONE (22:54)
[2023-03-06] MEDS ORDERED: KETOROLAC TROMETHAMINE 60 MG/2 ML VIAL ONE (22:55)
[2023-03-06] MEDS ORDERED: diazePAM 5 MG TABLET ONE (22:55)
[2023-03-06] MEDS ORDERED: diazePAM 5 MG TABLET PO ONE (22:55)
== END 2023-03-06 22:59 | disposition home or self-care (01) ==
LOC: JERFT 22:18
PROC: 3E0233Z Introduction of Anti-inflammatory into Muscle, Percutaneous Approach (ICD-10-PCS; principal; 2023-03-06)
DX: M54.6 Pain in thoracic spine (principal)
CPT/HCPCS: 99284-25

== ENCOUNTER 2023-11-08 16:13 | Emergency (ER) | payer OTHER ==
[2023-11-08 16:21] VITALS: BP 118/78; PULSE 87; RESP 18; TEMP 97.5; BMI 27.7
[2023-11-08 17:24] LABS: BASO % 0.7 % (0-2.0); EOS % 1.7 % (0-4.5); HEMOGLOBIN 12.1 GM/dL (10.7-15.3); LYMPH % 33.6 % (8-40); MCH 30.3 pg (25.7-33.7); MCHC 33.7 g/dl (32.0-36.0); MONO % 7.8 % (3.8-10.2); NEUT % 56.2 % (42.8-82.8); PLATELET COUNT 258 10^3/uL (134-434); WHITE BLOOD COUNT 7.8 K/mm3 (4.0-10.0)
[2023-11-08 17:33] LABS: INR 0.97 (0.83-1.09); PROTHROMBIN TIME (PATIENT) 11.2 SEC (9.7-13.0)
[2023-11-08 17:34] LABS: URINE APPEARANCE CLEAR; URINE BILIRUBIN NEGATIVE (NEGATIVE); URINE COLOR YELLOW; URINE GLUCOSE (UA) NEGATIVE (NEGATIVE); URINE KETONE NEGATIVE (NEGATIVE); URINE LEUK ESTERASE NEGATIVE (NEGATIVE); URINE NITRITE NEGATIVE (NEGATIVE); URINE PROTEIN NEGATIVE (NEGATIVE); URINE UROBILINOGEN 0.2 mg/dL (0.2-1.0)
[2023-11-08 17:35] LABS: ACTIVATED PTT 29.7 SECONDS (25.2-36.5)
[2023-11-08 17:41] LABS: POTASSIUM 3.7 mmol/L (3.5-5.1)
[2023-11-08 17:43] LABS: CALCIUM 9.6 mg/dL (8.5-10.1)
[2023-11-08 17:44] LABS: ALBUMIN 3.7 g/dl (3.4-5.0)
[2023-11-08 17:47] LABS: CREATININE 0.6 mg/dL (0.55-1.3)
[2023-11-08 17:48] LABS: BILIRUBIN,TOTAL 0.3 mg/dL (0.2-1); TOT PROT 7.5 g/dl (6.4-8.2)
[2023-11-08 17:49] LABS: HCG,QUALITATIVE URINE Positive
== END 2023-11-08 20:51 | disposition home or self-care (01) ==
LOC: JER 16:13
DX: O02.1 Missed abortion (principal)
CPT/HCPCS: 36415; 76817-TC; 80053; 81003; 84702; 84703; 85025; 85610; 85730; 86850; 86900; 86901; 87086; 99284-25

== ENCOUNTER 2025-03-17 05:15 | Inpatient (IN) | payer OTHER ==
[2025-03-17 06:34] LABS: GLUCOSE,RANDOM 82.0 mg/dL (74-106); INR 0.9 (0.83-1.09); PROTHROMBIN TIME (PATIENT) 9.9 SEC (9.7-13.0)
[2025-03-17 06:36] LABS: CO2 20.0 mmol/L (21-32)
[2025-03-17 06:37] LABS: ACTIVATED PTT 27.5 SECONDS (25.2-36.5)
[2025-03-17 06:39] VITALS: BMI 32.5
[2025-03-17 06:40] LABS: CREATININE 0.56 mg/dL (0.55-1.3)
[2025-03-17 06:53] LABS: ABSOLUTE IMMATURE GRANULOCYTES 0.07 x10^3/uL (0.0-0.031); BASOPHILS # 0.04 x10^3/uL (0.01-0.08); EOSINOPHIL % 1.0 % (0.7-5.8); EOSINOPHILS # 0.09 x10^3/uL (0.04-0.36); MCHC 32.6 g/dl (32.2-35.5); MEAN CELL VOLUME 89.9 fl (79.4-94.8); MEAN PLT VOLUME 10.9 fl (9.4-12.3); MONOCYTE # 1.00 x10^3/uL (0.24-0.86); MONOCYTE % 11.4 % (4.7-12.5); RDW 13.6 % (12.1-16.8)
[2025-03-17] MEDS: ELECTROLYTE-148 SOLN 500 ML IV SCH (07:00)
[2025-03-17] MEDS: ELECTROLYTE-148 SOLN 1,000 ML IV SCH (07:30)
[2025-03-17] MEDS ORDERED: morphine SULFATE/PF 1 MG/2 ML (2cc Syringe - QUVA) ONE (08:06)
[2025-03-17] MEDS ORDERED: FENTANYL CITRATE/PF 50 MCG/ML VIAL ONE (08:06)
[2025-03-17] MEDS: morphine SULFATE/PF 1 MG/2 ML (2cc Syringe - QUVA) SPIN ONE (08:35)
[2025-03-17] MEDS: CITRIC ACID/SODIUM CITRATE 30 ML UNIT-DOSE CUP PO ONE (08:58)
[2025-03-17] MEDS ORDERED: KETOROLAC TROMETHAMINE 30 MG/1 ML VIAL ONE (09:07)
[2025-03-17] MEDS ORDERED: ONDANSETRON 4 MG/2 ML VIAL ONE (09:07)
[2025-03-17] MEDS ORDERED: OXYTOCIN 10 UNITS/ML VIAL ONE (09:07)
[2025-03-17] MEDS ORDERED: PHENYLEPHRINE HCL 10 MG/1 ML SINGLE DOSE VIAL ONE (09:07)
[2025-03-17] MEDS ORDERED: SODIUM CHLORIDE 0.9% P/F 10 ML VIAL IJ ONE (09:07)
[2025-03-17] MEDS ORDERED: ACETAMINOPHEN 325 MG TABLET (FP) PO PRN (09:36)
[2025-03-17] MEDS ORDERED: METHYLERGONOVINE MALEATE 0.2 MG/1 ML AMP IM PRN (09:36)
[2025-03-17] MEDS ORDERED: IBUPROFEN 600 MG TABLET (FP) PO PRN (09:36)
[2025-03-17 10:00] LABS: CORD BASE EXCESS -2.8 mmol/L (0-2); CORD HCO3 23.5 mmHg (20-29); CORD PCO2 48.0 mmHg (30-78); CORD pH 7.308 (7.14-7.44)
[2025-03-17 10:03] LABS: CORD BASE EXCESS -3.3 mmol/L (0-2); CORD HCO3 21.9 mmHg (20-29); CORD PCO2 39.6 mmHg (30-78); CORD pH 7.36 (7.14-7.44)
[2025-03-17] MEDS: OXYTOCIN 20 UNITS in 0.9% NS 20 UNIT/1,000 ML INFUS.BAG IV SCH (10:10)
[2025-03-17] MEDS ORDERED: OXYTOCIN 20 UNITS in 0.9% NS 20 UNIT/1,000 ML INFUS.BAG IV ONE (10:13)
[2025-03-17] MEDS ORDERED: ONDANSETRON 4 MG/2 ML VIAL IVPUSH PRN (10:25)
[2025-03-17] MEDS ORDERED: ACETAMINOPHEN INJECTION 100 ML ONE (11:22)
[2025-03-17] MEDS: ACETAMINOPHEN 1000 MG/100 ML BAG IVPB PRN (11:30)
[2025-03-17] MEDS: SIMETHICONE 80 MG TAB.CHEW (FP) PO PRN (19:41)
[2025-03-18 07:56] LABS: ABSOLUTE IMMATURE GRANULOCYTES 0.08 x10^3/uL (0.0-0.031); BASOPHILS # 0.05 x10^3/uL (0.01-0.08); EOSINOPHIL % 1.5 % (0.7-5.8); EOSINOPHILS # 0.18 x10^3/uL (0.04-0.36); MCHC 32.5 g/dl (32.2-35.5); MEAN CELL VOLUME 90.9 fl (79.4-94.8); MEAN PLT VOLUME 11.0 fl (9.4-12.3); MONOCYTE # 1.15 x10^3/uL (0.24-0.86); MONOCYTE % 9.6 % (4.7-12.5); RDW 13.6 % (12.1-16.8)
[2025-03-18] MEDS: IBUPROFEN 600 MG TABLET (FP) PO PRN (08:53)
[2025-03-18] MEDS ORDERED: BISACODYL 10 MG SUPP.RECT RC PRN (09:36)
[2025-03-18] MEDS: ACETAMINOPHEN 325 MG TABLET (FP) PO PRN (19:08)
[2025-03-18] MEDS: ACETAMINOPHEN 1000 MG/100 ML BAG IVPB SCH (19:48)
[2025-03-19 08:58] VITALS: RESP 18; TEMP 98.1
[2025-03-19 23:09] VITALS: PULSE 85
[2025-03-20 07:09] LABS: MCHC 32.4 g/dl (32.2-35.5); MEAN CELL VOLUME 90.5 fl (79.4-94.8); MEAN PLT VOLUME 10.4 fl (9.4-12.3); RDW 13.6 % (12.1-16.8)
[2025-03-20 10:56] VITALS: BP 119/72
== END 2025-03-20 14:00 | disposition home or self-care (01) | DRG 540 ==
LOC: JLDR 05:15 → J3W 12:25
PROVIDERS: ADMIT Obstetrics & Gynecology Obstetrics; ATTEND Obstetrics & Gynecology Obstetrics
PROC: 10D00Z1 Extraction of Products of Conception, Low, Open Approach (ICD-10-PCS; principal; 2025-03-17)
DX: O44.23 Partial placenta previa NOS or without hemorrhage, third trimester (principal); O60.14X0 Preterm labor third trimester with preterm delivery third trimester, not applicable or unspecified; O34.211 Maternal care for low transverse scar from previous cesarean delivery; N85.8 Other specified noninflammatory disorders of uterus; Z3A.36 36 weeks gestation of pregnancy; Z37.0 Single live birth
CPT/HCPCS: 36415; 36600; 59409; 80048; 82803; 85025; 85610; 85730; 86780; 86922; 88307-TC; 94010